=== PATIENT | male | born 1960 | race Caucasian/White ===

== ENCOUNTER → 2017-09-24 09:32 | Outpatient (CLI) | payer OTHER ==
[~2017-09-24 09:32] MED LIST: [UNRECOGNIZED DRUG - OTHER]
== END | disposition home or self-care (01) ==
LOC: LAB 09:32
DX: K57.30 Diverticulosis of large intestine without perforation or abscess without bleeding (principal); R19.4 Change in bowel habit; Z12.11 Encounter for screening for malignant neoplasm of colon

== ENCOUNTER 2017-09-30 08:20 | Day surgery (SDC) | payer OTHER | END 2017-09-30 13:00 | disposition home or self-care (01) | LOC: AMB-ENDOS 08:20 | DX: K57.30 Diverticulosis of large intestine without perforation or abscess without bleeding (principal); Z12.11 Encounter for screening for malignant neoplasm of colon ==

== ENCOUNTER → 2017-10-30 16:50 | Outpatient (CLI) | payer OTHER | END | disposition home or self-care (01) | LOC: LAB 16:50 | DX: K57.30 Diverticulosis of large intestine without perforation or abscess without bleeding (principal); R19.4 Change in bowel habit; Z12.11 Encounter for screening for malignant neoplasm of colon; R14.0 Abdominal distension (gaseous); R14.1 Gas pain; R14.2 Eructation ==

== ENCOUNTER 2018-11-06 08:25 | Outpatient (CLI) | payer OTHER | END 2018-11-06 08:38 | disposition home or self-care (01) | LOC: SONOGRAMA 08:25 | DX: N20.0 Calculus of kidney (principal) ==

== ENCOUNTER 2018-11-06 08:37 | Outpatient (CLI) | payer OTHER | END 2018-11-06 09:02 | disposition home or self-care (01) | LOC: LAB 08:37 | DX: N39.0 Urinary tract infection, site not specified (principal); Z12.11 Encounter for screening for malignant neoplasm of colon; I10 Essential (primary) hypertension; N52.8 Other male erectile dysfunction ==

== ENCOUNTER 2019-01-20 08:21 | Emergency (ER) | payer OTHER ==
[~2019-01-20] VITALS: Ht 172.7 cm; Wt 72.6 kg
== END 2019-01-20 12:51 | disposition home or self-care (01) ==
LOC: ER 08:21
DX: K57.90 Diverticulosis of intestine, part unspecified, without perforation or abscess without bleeding (principal); R10.30 Lower abdominal pain, unspecified

== ENCOUNTER 2019-06-07 14:07 | Outpatient (CLI) | payer OTHER | END 2019-06-07 15:00 | disposition home or self-care (01) | LOC: MRI 14:07 | DX: M51.17 Intervertebral disc disorders with radiculopathy, lumbosacral region (principal); S32.000S Wedge compression fracture of unspecified lumbar vertebra, sequela; M54.5 Low back pain | CPT/HCPCS: 72148 ==

== ENCOUNTER → 2019-08-02 09:34 | Outpatient (CLI) | payer OTHER | END | disposition home or self-care (01) | LOC: LAB 09:34 | DX: E03.8 Other specified hypothyroidism (principal); E11.21 Type 2 diabetes mellitus with diabetic nephropathy; D63.1 Anemia in chronic kidney disease; N30.00 Acute cystitis without hematuria; E78.49 Other hyperlipidemia ==

== ENCOUNTER → 2020-01-26 09:25 | Outpatient (CLI) | payer OTHER | END | disposition home or self-care (01) | LOC: LAB 09:25 | PROVIDERS: ATTEND Urology | DX: N40.0 Benign prostatic hyperplasia without lower urinary tract symptoms (principal); N20.0 Calculus of kidney; R97.20 Elevated prostate specific antigen [PSA]; R31.1 Benign essential microscopic hematuria; I10 Essential (primary) hypertension ==

== ENCOUNTER 2022-02-28 21:51 | Emergency (ER) | payer OTHER ==
[~2022-02-28] VITALS: Ht 172.7 cm; Wt 71.7 kg
[2022-02-28] MEDS ORDERED: TOPROL XL25 M1 PO (21:57)
[2022-02-28] MEDS ORDERED: NORVASC2.5 MG PO (22:01)
[2022-02-28] MEDS ORDERED: PANTOPRAZOLE SO40 M2 (22:01)
[2022-03-01] MEDS ORDERED: CEPHALEXIN500 MG PO (06:59)
[2022-03-01] MEDS ORDERED: KETO10TA2 PO (06:59)
== END 2022-03-01 08:07 ==
LOC: ER 21:51
DX: S61.002A Unspecified open wound of left thumb without damage to nail, initial encounter (principal); S62.525A Nondisplaced fracture of distal phalanx of left thumb, initial encounter for closed fracture; X58.XXXA Exposure to other specified factors, initial encounter; Y93.89 Activity, other specified; Y92.89 Other specified places as the place of occurrence of the external cause; Y99.9 Unspecified external cause status; Z88.6 Allergy status to analgesic agent; Z88.8 Allergy status to other drugs, medicaments and biological substances; Z20.822 Contact with and (suspected) exposure to COVID-19; I10 Essential (primary) hypertension

== ENCOUNTER → 2022-03-07 | Day surgery (SDC) | payer OTHER ==
[~2022-03-07] MED LIST changes: +CEPHALEXIN500 MG PO; +KETO10TA2 PO; +NORVASC2.5 MG PO; +PANTOPRAZOLE SO40 M2; +TOPROL XL25 M1 PO
== END | disposition home or self-care (01) ==
LOC: CIR.AMB 12:15
PROVIDERS: ATTEND Orthopaedic Surgery Hand Surgery
DX: S62.522A Displaced fracture of distal phalanx of left thumb, initial encounter for closed fracture (principal); Z88.8 Allergy status to other drugs, medicaments and biological substances; I10 Essential (primary) hypertension; J45.909 Unspecified asthma, uncomplicated; E78.5 Hyperlipidemia, unspecified; Z20.822 Contact with and (suspected) exposure to COVID-19

== ENCOUNTER → 2022-09-11 08:13 | Outpatient (CLI) | payer OTHER | END | disposition home or self-care (01) | LOC: LAB 08:13 | PROVIDERS: ATTEND Urology | DX: E78.5 Hyperlipidemia, unspecified (principal); R31.1 Benign essential microscopic hematuria; R97.20 Elevated prostate specific antigen [PSA]; E55.9 Vitamin D deficiency, unspecified; E03.9 Hypothyroidism, unspecified; E16.2 Hypoglycemia, unspecified ==

== ENCOUNTER 2022-09-11 08:19 | Outpatient (CLI) | payer OTHER | END 2022-09-11 08:28 | disposition home or self-care (01) | LOC: SONOGRAMA 08:19 | PROVIDERS: ATTEND Urology | DX: R31.1 Benign essential microscopic hematuria (principal); N40.0 Benign prostatic hyperplasia without lower urinary tract symptoms; N20.0 Calculus of kidney ==

== ENCOUNTER 2023-03-27 08:37 | Outpatient (CLI) | payer OTHER | END 2023-03-27 08:43 | disposition home or self-care (01) | LOC: RAD 08:37 | PROVIDERS: ATTEND Orthopaedic Surgery | DX: R07.89 Other chest pain (principal) ==

== ENCOUNTER 2023-03-27 09:02 | Outpatient (CLI) | payer OTHER | END 2023-03-27 15:29 | disposition home or self-care (01) | LOC: LAB 09:02 | DX: I10 Essential (primary) hypertension (principal) ==

== ENCOUNTER 2023-09-22 09:11 | Outpatient (CLI) | payer OTHER | END 2023-09-22 09:16 | disposition home or self-care (01) | LOC: CANPRECLI → RAD 09:11 | PROVIDERS: ATTEND Otolaryngology | DX: R07.9 Chest pain, unspecified (principal); I10 Essential (primary) hypertension ==

== ENCOUNTER 2023-09-22 09:28 | Outpatient (CLI) | payer OTHER ==
[2023-09-22 10:35] LABS: PH,URINE 5.5 (5.0-8.0); URINE APPEARANCE Clear; URINE BILIRRUBIN Negative (NEGATIVE); URINE BLOOD Trace; URINE COLOR Yellow; URINE GLUCOSE Negative (NEGATIVE); URINE LEUKOCYTE Negative; URINE NITRATE Negative; URINE PROTEIN Negative (NEGATIVE); URINE UROBILINOGEN 0.2 E.U./dl
[2023-09-22 10:38] LABS: HEMATOCRIT 43.5 % (39.0-48.0); HEMOGLOBIN 14.5 g/dL (13-16.00); MEAN CELL VOLUME 91.1 fL (80.0-100.00); MEAN CORPUSCULAR HEMOGLOBIN 30.4 pg (27.00-32.0); MEAN CORPUSCULAR HGB CONC 33.4 g/dl (32.0-36.0); PLATELET COUNT 254 K/uL (150-450); RED BLOOD COUNT 4.77 M/uL (4.00-6.00); RED CELL DISTRIBUTION WIDTH 14.2 % (11.5-14.5)
[2023-09-22 10:56] LABS: URINE BACTERIA 0 uL (0.0-1933); URINE EPITHELIAL CELLS 0.4 uL (0.0-38.8); URINE RBC 1.4 uL (0.0-20.8); URINE WBC 0.6 uL (0.0-23.2)
[2023-09-22 11:05] LABS: INR 0.95
[2023-09-22 13:09] LABS: ALBUMIN 3.9 gm/dL (3.4-5.0); BILIRUBIN TOTAL 0.65 mg/dL (0.3-1.2); CALCIUM 9.5 mg/dL (8.5-10.1); CHOL HDL RATIO 2.7 (0-5.0); CREATININE SERUM 1.07 mg/dL (0.70-1.30); GFR 70.26; GLOBULINA 3.6 G/DL (2.4-3.5); POTASSIUM 3.95 mEq/L (3.5-5.1); PROSTATIC SPECIFIC ANTIGEN 0.662 NG/ML (0.010-4.00); TOTAL PROTEIN 7.5 gm/dL (6.4-8.2); TSH 0.695 uIU/mL (0.358-3.74)
== END 2023-09-22 09:49 | disposition home or self-care (01) ==
LOC: LAB 09:28
PROVIDERS: ATTEND Urology
DX: N40.0 Benign prostatic hyperplasia without lower urinary tract symptoms (principal); N20.0 Calculus of kidney; R97.20 Elevated prostate specific antigen [PSA]; D64.9 Anemia, unspecified; D68.9 Coagulation defect, unspecified; N39.0 Urinary tract infection, site not specified; R07.9 Chest pain, unspecified; I10 Essential (primary) hypertension; E03.9 Hypothyroidism, unspecified; R73.9 Hyperglycemia, unspecified; E78.5 Hyperlipidemia, unspecified; E55.9 Vitamin D deficiency, unspecified